=== PATIENT | female | born 1960 | race Caucasian/White ===

== ENCOUNTER 2017-12-06 17:41 | Outpatient (RCR) | payer OTHER | END 2017-12-08 | disposition home or self-care (01) | LOC: CR3 17:41 | PROVIDERS: ATTEND Family Medicine | DX: Z29.8 Encounter for other specified prophylactic measures (principal) ==

== ENCOUNTER → 2018-01-08 | Outpatient (RCR) | payer OTHER | END | disposition home or self-care (01) | LOC: CR3 12-09 15:00 | PROVIDERS: ATTEND Family Medicine | DX: Z29.8 Encounter for other specified prophylactic measures (principal) ==

== ENCOUNTER 2018-01-10 15:00 | Outpatient (RCR) | payer OTHER | END 2018-02-09 | disposition home or self-care (01) | LOC: CR3 15:00 | PROVIDERS: ATTEND Family Medicine | DX: Z29.8 Encounter for other specified prophylactic measures (principal) ==

== ENCOUNTER 2018-07-25 15:34 | Outpatient (RCR) | payer OTHER | END 2018-07-27 | disposition home or self-care (01) | LOC: CR3 15:34 | PROVIDERS: ATTEND Family Medicine | DX: Z29.8 Encounter for other specified prophylactic measures (principal) ==

== ENCOUNTER 2018-08-25 15:40 | Outpatient (RCR) | payer OTHER | END 2018-08-31 | disposition home or self-care (01) | LOC: CR3 15:40 | PROVIDERS: ATTEND Family Medicine | DX: Z29.8 Encounter for other specified prophylactic measures (principal) ==

== ENCOUNTER → 2018-10-22 | Outpatient (RCR) | payer OTHER | END | disposition home or self-care (01) | LOC: CR3 09-22 15:00 | PROVIDERS: ATTEND Family Medicine | DX: Z29.8 Encounter for other specified prophylactic measures (principal) ==

== ENCOUNTER 2018-11-19 14:51 | Outpatient (RCR) | payer OTHER | END 2018-11-26 | disposition home or self-care (01) | LOC: CR3 14:51 | PROVIDERS: ATTEND Family Medicine | DX: Z29.8 Encounter for other specified prophylactic measures (principal) ==

== ENCOUNTER 2018-12-24 15:15 | Outpatient (RCR) | payer OTHER | END 2019-01-02 | disposition home or self-care (01) | LOC: CR3 15:15 | PROVIDERS: ATTEND Family Medicine | DX: Z29.8 Encounter for other specified prophylactic measures (principal) ==

== ENCOUNTER 2019-03-11 16:34 | Outpatient (RCR) | payer OTHER | END 2019-03-18 | disposition home or self-care (01) | LOC: CR3 16:34 | PROVIDERS: ATTEND Family Medicine | DX: Z29.8 Encounter for other specified prophylactic measures (principal) ==

== ENCOUNTER 2019-04-20 15:07 | Outpatient (RCR) | payer OTHER | END 2019-04-22 | disposition home or self-care (01) | LOC: CR3 15:07 | PROVIDERS: ATTEND Family Medicine | DX: Z29.8 Encounter for other specified prophylactic measures (principal) ==

== ENCOUNTER 2019-05-15 15:24 | Outpatient (RCR) | payer OTHER | END 2019-05-27 | disposition home or self-care (01) | LOC: CR3 15:24 | PROVIDERS: ATTEND Family Medicine | DX: Z29.8 Encounter for other specified prophylactic measures (principal) ==

== ENCOUNTER 2019-06-29 15:22 | Outpatient (RCR) | payer OTHER | END 2019-07-01 | disposition home or self-care (01) | LOC: CR3 15:22 | PROVIDERS: ATTEND Family Medicine | DX: Z29.8 Encounter for other specified prophylactic measures (principal) ==

== ENCOUNTER 2019-07-31 15:17 | Outpatient (RCR) | payer OTHER | END 2019-08-02 | disposition home or self-care (01) | LOC: CR3 15:17 | PROVIDERS: ATTEND Family Medicine | DX: Z29.8 Encounter for other specified prophylactic measures (principal) ==

== ENCOUNTER 2019-08-07 15:48 | Outpatient (RCR) | payer OTHER | END 2019-09-02 | disposition home or self-care (01) | LOC: CR3 15:48 | PROVIDERS: ATTEND Family Medicine | DX: Z29.8 Encounter for other specified prophylactic measures (principal) ==

== ENCOUNTER → 2020-09-07 | Outpatient (RCR) | payer OTHER | END | disposition home or self-care (01) | LOC: CR3 08-08 14:11 | PROVIDERS: ATTEND Family Medicine | DX: Z29.8 Encounter for other specified prophylactic measures (principal) ==

== ENCOUNTER 2020-10-05 14:10 | Outpatient (RCR) | payer OTHER | END 2020-10-09 | disposition home or self-care (01) | LOC: CR3 14:10 | PROVIDERS: ATTEND Family Medicine | DX: Z29.8 Encounter for other specified prophylactic measures (principal) ==

== ENCOUNTER 2020-11-07 14:17 | Outpatient (RCR) | payer OTHER | END 2020-11-09 | disposition home or self-care (01) | LOC: CR3 14:17 | PROVIDERS: ATTEND Family Medicine | DX: Z29.8 Encounter for other specified prophylactic measures (principal) ==

== ENCOUNTER 2020-12-09 14:13 | Outpatient (RCR) | payer OTHER | END 2020-12-11 | disposition home or self-care (01) | LOC: CR3 14:13 | PROVIDERS: ATTEND Family Medicine | DX: Z29.8 Encounter for other specified prophylactic measures (principal) ==

== ENCOUNTER → 2021-01-11 | Outpatient (RCR) | payer OTHER | END | disposition home or self-care (01) | LOC: CR3 12-12 11:44 | PROVIDERS: ATTEND Family Medicine | DX: Z29.8 Encounter for other specified prophylactic measures (principal) ==

== ENCOUNTER 2021-02-13 14:55 | Outpatient (RCR) | payer OTHER | END 2021-02-15 | disposition home or self-care (01) | LOC: CR3 14:55 | PROVIDERS: ATTEND Family Medicine | DX: Z29.8 Encounter for other specified prophylactic measures (principal) ==

== ENCOUNTER → 2021-03-22 | Outpatient (RCR) | payer OTHER | END | disposition home or self-care (01) | LOC: CR3 02-20 16:01 | PROVIDERS: ATTEND Family Medicine | DX: Z29.8 Encounter for other specified prophylactic measures (principal) ==

== ENCOUNTER → 2021-04-26 | Outpatient (RCR) | payer OTHER | END | disposition home or self-care (01) | LOC: CR3 03-27 13:59 | PROVIDERS: ATTEND Family Medicine | DX: Z29.8 Encounter for other specified prophylactic measures (principal) ==

== ENCOUNTER 2021-06-23 14:11 | Outpatient (RCR) | payer OTHER | END 2021-06-25 | disposition home or self-care (01) | LOC: CR3 14:11 | PROVIDERS: ATTEND Family Medicine | DX: Z29.8 Encounter for other specified prophylactic measures (principal) ==

== ENCOUNTER 2021-07-17 15:16 | Outpatient (RCR) | payer OTHER | END 2021-07-26 | disposition home or self-care (01) | LOC: CR3 15:16 | PROVIDERS: ATTEND Family Medicine | DX: Z29.8 Encounter for other specified prophylactic measures (principal) ==

== ENCOUNTER 2021-07-28 14:28 | Outpatient (RCR) | payer OTHER | END 2021-09-23 | disposition home or self-care (01) | LOC: CR3 14:28 | PROVIDERS: ATTEND Family Medicine | DX: Z29.8 Encounter for other specified prophylactic measures (principal) ==